=== PATIENT | female | born 1980 | race Hispanic/Latino ===

== ENCOUNTER 2017-09-28 18:17 | Emergency (ER) | payer SELFPAY ==
[2017-09-28] MEDS ORDERED: Ketorolac Tromethamine 30 MG/ML VIAL ONE (18:23)
[2017-09-28] MEDS ORDERED: Lorazepam 2 MG/ML VIAL ONE (18:33)
--- NOTE | 2017-09-28 21:12 | ULT ---
PELVIC ULTRASOUND WITH MUNOZ SCALE AND DOPPLER COLOR FLOW SPECTRAL ANALYSIS PERFORMED TRANSVAGINAL SONOGRAPHIC IMAGING OF THE PELVIS: Indication: Pelvic pain. FINDINGS: Focus of altered echo attenuation within the uterus may be related to uterine fibroid, located at the uterine fundus. The endometrium measures 8 mm which is within normal in size if the patient is pre-m enopausal. Doppler assessment reveals flow to each ovary. Physiologic appearing cysts are seen within the ovaries bilaterally. Punctate foci of increased echogenicity in the left ovary likely related to calcification. Minimal free pelvic fluid is nonspecific. IMPRESSION: 1. No acute pelvic pathology identified. 2. Minimal free pelvic fluid, probably uterine fibroid. As necessary, follow up may be obtained with a non-emergent pelvic MRI with and without contrast. POS: [facility]
--- NOTE | 2017-09-28 21:45 | CT ---
NONCONTRAST ABDOMEN AND PELVIS CT: Comparison: 09-28-17 CT with contrast. FINDINGS: There is patchy bilobed opacification which may be on the basis of pneumonitis or atelectasis. Correl ate clinically. There is excreted contrast within the bilateral urinary collecting systems and within the urinary bladder. This precludes assessment for potential calculi. There remains no evidence of o bstructive uropathy. There is limited evaluation of the solid abdominal organs, bowel, and vasculatur e on the basis of noncontrast technique. Prominent streak artifact from excreted contrast within the urinary bladder does limit assessment of the pelvis. No free air. No significant interval detrimental change. IMPRESSION: 1. Excreted contrast in the urinary collection systems and prominent degree of retained contrast with in the urinary bladder. 2. Bibasilar consolidation as above. Correlate clinically. 3. Evaluation limited on the basis of noncontrast technique. POS: [facility]
== END 2017-09-28 21:04 | disposition home or self-care (01) ==
LOC: EDUNIT# 18:17 → ERS 18:17
DX: R10.32 Left lower quadrant pain (principal); F41.9 Anxiety disorder, unspecified
CPT/HCPCS: 74176; 76856; 96374; 96375; J1885; J2060; J2270

== ENCOUNTER 2019-01-08 14:44 | Emergency (ER) | payer SELFPAY ==
[2019-01-08] MEDS ORDERED: Lorazepam 2 MG/ML VIAL ONE (15:19)
--- NOTE | 2019-01-08 15:39 | RAD ---
PORTABLE CHEST 1 VIEW: Date: 01/08/19 Time: 1515 hours HISTORY: Chest pain. FINDINGS: The heart size is normal. The lungs are well expanded without lobar consolidation, pneumothoraces, or pleural effusions. IMPRESSION: No acute process. POS: [facility]
[2019-01-08 15:40] LABS: #Eosinphils 0.1 thou/uL (0.0-0.7); #Lymphocytes 3.1 thou/uL (1.20-3.40); #Monocytes 0.4 thou/uL (0.11-0.59); #Neutrophils 3.8 thou/uL (1.40-6.50); %Basophils 0.6 % (0.0-1.0); %Eosinophils 1.8 % (0.0-10.0); %Lymphocytes 42.3 % (21.0-51.0); %Monocytes 4.9 % (0.0-10.0); %Neutrophils 50.5 % (42.0-75.0); Mean Corpuscular HGB CONC 33.8 g/dL (32.0-36.0); Mean Corpuscular Hemoglobin 32.3 pg (27.0-31.0); Mean Corpuscular Volume 95.6 fL (78.0-98.0); Mean Platelet Volume 8.5 fL (7.4-10.4); Platelet Count 253 thou/uL (130-400); Red Blood Cell (RBC) Count 4.02 mill/uL (4.20-5.40); White Blood Cell (WBC) Count 7.4 thou/uL (4.8-10.8)
[2019-01-08 16:01] LABS: Sodium 137 mmol/L (136-145)
[2019-01-08 16:02] LABS: ALT (SGPT) 24 U/L (8-55); AST (SGOT) 12 U/L (5-34); Albumin 4.1 g/dL (3.5-5.0); Alkaline Phosphatase 88 U/L (40-150); Anion Gap 11 mmol/L (10-20); BUN (Urea Nitrogen) 9 mg/dL (7.0-18.7); Bilirubin, Total 0.4 mg/dL (0.2-1.2); Calc. Creatinine Clearance 0 mL/min (70-130); Calcium 9.2 mg/dL (7.8-10.44); Carbon Dioxide 22 mmol/L (22-29); Chloride 107 mmol/L (98-107); Estimated GFR-MDRD Greater than 90; Glucose 111 mg/dL (70-105); Lipase 7 U/L (8-78); Potassium 3.2 mmol/L (3.5-5.1); Protein, Total 7.1 g/dL (6.0-8.3)
== END 2019-01-08 16:37 | disposition home or self-care (01) ==
LOC: ERS 14:44
DX: F41.0 Panic disorder [episodic paroxysmal anxiety] (principal); I10 Essential (primary) hypertension
CPT/HCPCS: 36415; 71045; 80053; 83690; 84443; 84484; 85025; 85379; 93005; 96374; J2060

== ENCOUNTER 2020-01-28 20:48 | Emergency (ER) | payer SELFPAY | END 2020-01-28 21:19 | disposition left against medical advice (07) | LOC: ERS 20:48 | DX: Z53.21 Procedure and treatment not carried out due to patient leaving prior to being seen by health care provider (principal) ==

== ENCOUNTER 2020-05-25 18:36 | Emergency (ER) | payer SELFPAY ==
[2020-05-25] MEDS ORDERED: diphenhydrAMINE 50 MG/ML VIAL ONE (20:24)
[2020-05-25] MEDS ORDERED: Ketorolac Tromethamine 30 MG/ML VIAL ONE (20:24)
[2020-05-25] MEDS ORDERED: Acetaminophen 500 MG TAB ONE (20:32)
--- NOTE | 2020-05-25 20:42 | CT ---
CT OF BRAIN PERFORMED WITHOUT CONTRAST ENHANCEMENT: 05/25/20 HISTORY: Headache. The ventricular and cisternal system is within normal limits. There are no signs of intracerebral hem orrhage or extra-axial fluid collections. The mastoid air cells and visualized sinuses are clear. IMPRESSION: No acute intracranial abnormalities. POS: [facility]
[2020-05-25] MEDS ORDERED: Prochlorperazine 10 MG/2 ML VIAL IVP SCH (21:00)
== END 2020-05-25 22:18 | disposition home or self-care (01) ==
LOC: ERS 18:36
DX: R51.9 Headache, unspecified (principal)
CPT/HCPCS: 70450; 96374; 96375; J0780; J1200; J1885

== ENCOUNTER 2021-06-02 22:17 | Emergency (ER) | payer OTHER, SELFPAY ==
[~2021-06-02 22:17] MED LIST: Iopamidol-370 76% 500 ML 1 ML ONE
[2021-06-02] MEDS ORDERED: Morphine 4 MG/ML VIAL ONE (23:01)
[2021-06-02] MEDS ORDERED: Ondansetron PF 4 MG/2 ML Vial ONE (23:01)
[2021-06-02 23:16] LABS: #Basophils 0.1 thou/uL (0.0-0.2); #Eosinphils 0.1 thou/uL (0.0-0.7); #Lymphocytes 2.6 thou/uL (1.20-3.40); #Monocytes 0.6 thou/uL (0.11-0.59); #Neutrophils 7.4 thou/uL (1.40-6.50); %Basophils 0.6 % (0.0-1.0); %Eosinophils 0.8 % (0.0-10.0); %Lymphocytes 23.9 % (21.0-51.0); %Monocytes 5.3 % (0.0-10.0); %Neutrophils 69.3 % (42.0-75.0); Mean Corpuscular HGB CONC 34.9 g/dL (32.0-36.0); Mean Corpuscular Hemoglobin 32.6 pg (27.0-31.0); Mean Corpuscular Volume 93.4 fL (78.0-98.0); Mean Platelet Volume 8.6 fL (7.4-10.4); Platelet Count 269 thou/uL (130-400); Red Blood Cell (RBC) Count 3.99 mill/uL (4.20-5.40); White Blood Cell (WBC) Count 10.7 thou/uL (4.8-10.8)
[2021-06-02 23:37] LABS: ALT (SGPT) 26 U/L (8-55); AST (SGOT) 18 U/L (5-34); Albumin 4.2 g/dL (3.5-5.0); Alkaline Phosphatase 105 U/L (40-110); Anion Gap 10 mmol/L (10-20); BUN (Urea Nitrogen) 10 mg/dL (7.0-18.7); Bilirubin, Total 0.2 mg/dL (0.2-1.2); Calc. Creatinine Clearance 0 mL/min (70-130); Calcium 9.1 mg/dL (7.8-10.44); Carbon Dioxide 19 mmol/L (22-29); Chloride 106 mmol/L (98-107); Globulin 2.7 g/dL (2.4-3.5); Glucose 265 mg/dL (70-105); Protein, Total 6.9 g/dL (6.0-8.3); Sodium 131 mmol/L (136-145)
[2021-06-03] MEDS ORDERED: Ketorolac Tromethamine 30 MG/ML VIAL ONE (00:28)
== END 2021-06-03 01:50 | disposition home or self-care (01) ==
LOC: ERS 22:17
DX: S09.90XA Unspecified injury of head, initial encounter (principal); S50.12XA Contusion of left forearm, initial encounter; S40.012A Contusion of left shoulder, initial encounter; V49.40XA Driver injured in collision with unspecified motor vehicles in traffic accident, initial encounter
CPT/HCPCS: 36415; 70450; 70486; 71260; 72125; 74177; 80053; 85025; 96374; 96375; J1885; J2270; J2405; Q9967